=== PATIENT | female | born 1945 | race Two or more races ===

== ENCOUNTER 2022-11-27 07:01 | Day surgery (SDC) | payer OTHER ==
[~2022-11-27] VITALS: Ht 157.5 cm; Wt 89.4 kg
[2022-11-27] VITALS (7 sets, daily range): BP systolic 115–141; BP diastolic 65–82
[~2022-11-27 07:01] MED LIST: APIX5TAB PO; DRON400T PO; FLUO-125 PO; LEVO100T8 PO; LISI-706 PO; OMEP20TA PO; SIMV-8 PO
[2022-11-27] MEDS ORDERED: ANGIOMAX 250 MG VIAL IV ONE (08:54)
[2022-11-27] MEDS ORDERED: HEPARIN SODIUM (PORCINE) 5000 UNITS/ML 1ML VIAL ONE (08:54)
[2022-11-27] MEDS ORDERED: fentaNYL CITRATE 100 MCG/2 ML VL ONE (08:54)
[2022-11-27] MEDS ORDERED: LIDOCAINE 2%HCL (LOCAL ANESTH.) INJ 10ml MDV ONE (08:55)
[2022-11-27] MEDS ORDERED: IODIXANOL 320MG/ML 100ML BTL IV ONE (08:55)
[2022-11-27] MEDS ORDERED: VERAPAMIL 2.5MG/ML INJ 2ML VIAL IV ONE (08:55)
[2022-11-27] MEDS ORDERED: MIDAZOLAM HCL 2MG/2ML 2ml VIAL (1mg/ml) ONE (08:55)
[2022-11-27] MEDS ORDERED: SODIUM CHL 0.9% 0 ML ONE (08:55)
[2022-11-27] MEDS ORDERED: LIDOCAINE 2%HCL (LOCAL ANESTH.) INJ 20ML MDV ONE (09:38)
== END 2022-11-27 12:28 | disposition home or self-care (01) ==
LOC: CATH 07:01
PROVIDERS: ATTEND Internal Medicine Cardiovascular Disease
DX: I25.10 Atherosclerotic heart disease of native coronary artery without angina pectoris (principal); R94.39 Abnormal result of other cardiovascular function study; I77.89 Other specified disorders of arteries and arterioles; J44.9 Chronic obstructive pulmonary disease, unspecified; K44.9 Diaphragmatic hernia without obstruction or gangrene; I10 Essential (primary) hypertension; E03.9 Hypothyroidism, unspecified; E78.5 Hyperlipidemia, unspecified; I48.0 Paroxysmal atrial fibrillation; K21.9 Gastro-esophageal reflux disease without esophagitis; E66.01 Morbid (severe) obesity due to excess calories; Z68.36 Body mass index [BMI] 36.0-36.9, adult; Z87.891 Personal history of nicotine dependence; Z79.899 Other long term (current) drug therapy; Z79.890 Hormone replacement therapy
CPT/HCPCS: 76937; 93458; C1757; C1894; J1644; J2001; J2250; J3010; Q9967; 99152; 99153

== ENCOUNTER 2023-05-08 06:58 | Day surgery (SDC) | payer OTHER ==
[~2023-05-08] VITALS: Ht 157.5 cm; Wt 89.8 kg
[2023-05-08] VITALS (10 sets, daily range): BP systolic 101–148; BP diastolic 48–84; PULSE 57–110; RESP 13–18; TEMP 98.6; O2SAT 94–99
[~2023-05-08 06:58] MED LIST changes: +AMIO100T6 PO; -DRON400T PO; +HYDR200T36 PO; -LEVO100T8 PO; +LEVO112T4 PO; -SIMV-8 PO; +SIMV20TA20 PO
[2023-05-08] MEDS ORDERED: fentaNYL CITRATE 100 MCG/2 ML VL IV ONE (07:45)
[2023-05-08] MEDS ORDERED: MIDAZOLAM HCL 2MG/2ML 2ml VIAL (1mg/ml) IV ONE (07:45)
[2023-05-08] MEDS ORDERED: LIDOCAINE VISCOUS 2% 15ML UD PO ONE (07:45)
[2023-05-08] MEDS ORDERED: NALOXONE HCL 0.4 MG/ML VIAL ONE (08:36)
[2023-05-08] MEDS ORDERED: FLUMAZENIL 0.1 MG/ML INJ 10ML MDV IV ONE (08:36)
== END 2023-05-08 10:05 | disposition home or self-care (01) ==
LOC: CATH 06:58
PROVIDERS: ATTEND Internal Medicine Cardiovascular Disease
DX: I08.1 Rheumatic disorders of both mitral and tricuspid valves (principal); I48.91 Unspecified atrial fibrillation; I25.10 Atherosclerotic heart disease of native coronary artery without angina pectoris; I10 Essential (primary) hypertension; E78.5 Hyperlipidemia, unspecified; K21.9 Gastro-esophageal reflux disease without esophagitis; E03.9 Hypothyroidism, unspecified; M19.90 Unspecified osteoarthritis, unspecified site; Z87.891 Personal history of nicotine dependence; Z79.899 Other long term (current) drug therapy; Z79.890 Hormone replacement therapy
CPT/HCPCS: 92960; 93312; J2250; J3010; 99152

== ENCOUNTER 2024-03-11 06:55 | Inpatient (IN) | payer OTHER ==
[~2024-03-11] VITALS: Ht 162.6 cm; Wt 92.3 kg
[2024-03-11] VITALS (17 sets, daily range): BP systolic 88–149; BP diastolic 44–65; PULSE 60–65; RESP 11–20; TEMP 97.6–98; O2SAT 92–99
[~2024-03-11 06:55] MED LIST changes: +FOLI-119 PO; +METH2.5T PO; +SERT-375 PO
[2024-03-11] MEDS: VANCOMYCIN HCL 1000 MG VL ONE (08:23)
[2024-03-11] MEDS: fentaNYL CITRATE 100 MCG/2 ML VL ONE (08:24)
[2024-03-11] MEDS: MIDAZOLAM HCL 2MG/2ML 2ml VIAL (1mg/ml) ONE (08:25)
[2024-03-11] MEDS: VANCOMYCIN 1GM/200ML 200 ML IV ONE (08:26)
[2024-03-11] MEDS: LIDOCAINE 2%HCL (LOCAL ANESTH.) INJ 20ML MDV ONE (09:23)
[2024-03-11] MEDS: HYDROmorphone HCL 2 MG/ML VL/or syr ONE (09:47)
[2024-03-11] MEDS: IOHEXOL 350 MG/ML 100ML IJ ONE (09:49)
[2024-03-11] MEDS ORDERED: METHOTREXATE 2.5 MG TAB PO SCH (11:45)
[2024-03-11] MEDS ORDERED: MORPHINE SULFATE INJ 2 MG/ml SYRG IV PRN (11:45)
[2024-03-11] MEDS ORDERED: NITROGLYCERIN 0.4 MG SL TAB SL PRN (11:45)
[2024-03-11] MEDS: HYDROcodone-ACET 5/325MG TAB PO PRN (14:21)
[2024-03-11] MEDS: AMIODARONE HCL 200 MG TAB PO SCH (21:57)
[2024-03-11] MEDS: ATORVASTATIN 20 MG TAB PO SCH (21:57)
[2024-03-12] VITALS (8 sets, daily range): BP systolic 113–154; BP diastolic 58–79; PULSE 60–61; RESP 16–21; TEMP 97.8–99.5; O2SAT 92–95
[2024-03-12] MEDS: LEVOTHYROXINE SODIUM 112 MCG TAB PO SCH (06:40)
[2024-03-12] MEDS: LISINOPRIL 20 MG TAB PO SCH (09:19)
[2024-03-12] MEDS: FOLIC ACID 1 MG TAB PO SCH (09:20)
[2024-03-12] MEDS: hydrOXYchloroQUINE SULFATE 200 MG TAB PO SCH (09:20)
[2024-03-12] MEDS: SERTRALINE HCL 50 MG TAB PO SCH (09:20)
[2024-03-12] MEDS: FLUoxetine HCL 20 MG CAP PO SCH (09:20)
[2024-03-12] MEDS: hydroCHLOROthiazide 25 MG TAB PO SCH (09:21)
[2024-03-12] MEDS ORDERED: METHOTREXATE 2.5 MG TAB PO SCH (10:00)
== END 2024-03-12 18:50 | disposition home or self-care (01) | DRG 244 ==
LOC: CATH 06:55 → TELE 11:39 → TELE-WESTW 15:35
PROVIDERS: ADMIT Internal Medicine; ATTEND Internal Medicine
PROC: 0JH606Z Insertion of Pacemaker, Dual Chamber into Chest Subcutaneous Tissue and Fascia, Open Approach (ICD-10-PCS; principal; 2024-03-11)
PROC: 02H63JZ Insertion of Pacemaker Lead into Right Atrium, Percutaneous Approach (ICD-10-PCS; 2024-03-11)
PROC: 02HK3JZ Insertion of Pacemaker Lead into Right Ventricle, Percutaneous Approach (ICD-10-PCS; 2024-03-11)
PROC: B5171ZZ Fluoroscopy of Left Subclavian Vein using Low Osmolar Contrast (ICD-10-PCS; 2024-03-11)
DX: I49.5 Sick sinus syndrome (principal); I10 Essential (primary) hypertension
CPT/HCPCS: 33208; 71045; 99152; G0378; J2250

== ENCOUNTER 2024-07-15 12:02 | Inpatient (IN) | payer OTHER ==
[2024-07-15] VITALS (7 sets, daily range): BP systolic 104–124; BP diastolic 32–59; PULSE 64; RESP 18–20; O2SAT 92–97
[~2024-07-15] VITALS: Ht 157.5 cm; Wt 91.5 kg
[~2024-07-15 12:02] MED LIST changes: +ASPI-543 PO; +POM PO; -SERT-375 PO
[2024-07-15] MEDS: VANCOMYCIN HCL 1000 MG VL ONE ×2 (17:22→18:21)
[2024-07-15] MEDS: fentaNYL CITRATE 100 MCG/2 ML VL ONE ×2 (17:23→18:40)
[2024-07-15] MEDS: LIDOCAINE 2%HCL (LOCAL ANESTH.) INJ 20ML MDV ONE (17:23)
[2024-07-15] MEDS: MIDAZOLAM HCL 2MG/2ML 2ml VIAL (1mg/ml) ONE ×2 (17:23→17:55)
[2024-07-15] MEDS: VANCOMYCIN 1GM/250ML KIT 250 ML IV ONE (17:23)
--- NOTE | 2024-07-15 19:14 | DVHOP ---
DATE OF SURGERY: 07/15/2024 PROCEDURE PERFORMED: Lead revision for high thresholds leads. DESCRIPTION OF PROCEDURE: Prior local anesthesia with 2% lidocaine to the left pectoral area and full informed consent obtained over the preexisting pacer site, an incision was made and lidocaine was given as well as conscious sedation for local anesthetic. The patient was prepped and draped in the usual fashion. We dissected the generator and leads. We cut the preexisting sutures and repositioned the leads especially atrial lead into position that had adequate capture and sensitivity thresholds. This was done under fluoroscopic guidance. After several attempts, we found an adequate capture and sensitivity threshold, for which we then sutured the lead. The pocket was flushed with antibiotic solution and antibiotic powder was left in the pocket. The pocket was sutured with 3-0 Vicryl. The leads were sutured with 0 Ethibond. The skin was closed with 4-0 Monocryl. The patient tolerated the procedure well. There were no complications. We did not replace the leads or generator. The atrial lead captured at a 0.8 volts at 0.4 milliseconds with a P-wave of 1.5 and impedance of 430. Right ventricular capture at 0.7 volts at 0.4 milliseconds. R-waves of 7.7 with impedance of 485. The settings on the pacemaker was 165/130. AV delay of 205/150 with a PVARP of 250. The patient tolerated the procedure well. There were no complications. An EKG was ordered for evaluation. No complications. MD CAROL Campa/LEIGHTON TID: [id number] RECEIPT: [id number]
--- NOTE | 2024-07-15 20:59 | DVH ---
CHEST RADIOGRAPH Indication: post lead revision Technique: Single frontal view of the chest was obtained COMPARISON: XY CHEST PORTABLE on DOS: 03/12/24, XY CHEST PORTABLE on DOS: 03/11/24 FINDINGS: Lines and Tubes: Left chest wall pacemaker Lungs: Mild congestion Pleura: No effusion. No pneumothorax. Cardiomediastinal contours: Cardiomegaly Bones: Unremarkable IMPRESSION: Mild congestion
[2024-07-15] MEDS: traMADol HCL 50 MG TAB PO PRN (23:05)
[2024-07-16] VITALS (8 sets, daily range): BP systolic 102–140; BP diastolic 51–90; PULSE 59–71; RESP 14–20; TEMP 97.4–98.3; O2SAT 90–96
[2024-07-16] MEDS ORDERED: MORPHINE SULFATE INJ 2 MG/ml SYRG IV ONE (09:15)
--- NOTE | 2024-07-16 09:23 | DVHPN2 ---
Consult Progress Note Date Seen: Jul 16, 2024 Subjective Patient reports: No new complaints, Feels better Review of Systems: HEENT:Normal, CVS:Normal, RESPIRATORY:Normal, GI:Normal, :Normal, MSK:Normal, MSK:Abnormal, NEURO:Abnormal Objective vital signs Vital Sign Date Time Temp Pulse Resp B/P (MAP) Pulse Ox O2 Delivery O2 Flow Rate FiO2 07/16/24 05:00 97.4 71 20 137/62 (87) 93 97.4 07/15/24 21:00 Room Air* 0 21 Total Intake and Output 07/15/24 07/15/24 07/16/24 15:00 23:00 07:00 Intake Total 720 ml Output Total 300 ml Balance 420 ml medications Current Medications Medications Dose Ordered Sig/Dereck Route Start Time Stop Time Status Last Admin Dose Admin Tramadol HCl 50 mg Q4HP PRN PO 07/15/24 21:30 07/16/24 03:06 50 MG Examination: GENERAL:Normal, HEENT:Normal, NECK:Normal, LUNGS:Normal, CVS:Normal, ABDOMEN:Normal, MSK:Normal, SKIN:Normal (Pacer site looks good. No inflammation. ), NEURO:Normal, :Normal laboratory and microbiology Chest x-ray was evaluated. There is loss of slack from both the atrial and ventricular leads upon sitting up and the diaphragmatic excursion seems to have caused a stretching of the leads. We will repeat chest x-ray this morning and obtain threshold check. Problem List/Assessment/Plan Problem List/Assessment/Plan Status post pacemaker generator lead revision. We will obtain threshold check and chest x-ray before considering discharge. Plan discussed with: Patient Date of Service: Jul 16, 2024 Billing Provider: LEONID EDWARDS Sr., MD Cardiology Common Codes: [id number] HOSP CARE(High Card. Pacer Implants/Gen [id number] DUAL LEAD PACER ( lead revision) LEONID EDWARDS Sr., MD Jul 16, 2024 09:22
[2024-07-16] MEDS: HYDROcodone-ACET 5/325MG TAB PO PRN (11:46)
--- NOTE | 2024-07-16 12:30 | DVH ---
CHEST RADIOGRAPH Indication: pacer position Technique: Single frontal view of the chest was obtained COMPARISON: XY CHEST XRAY 1 VIEW on DOS: 07/15/24, XY CHEST PORTABLE on DOS: 03/12/24, XY CHEST PORTAB LE on DOS: 03/11/24 FINDINGS: Lines and Tubes: Left chest wall pacemaker Lungs: Mild congestion Pleura: No effusion. No pneumothorax. Cardiomediastinal contours: Unremarkable Bones: Unremarkable IMPRESSION: Left chest wall pacemaker in satisfactory position. Mild congestion.
[2024-07-17 01:00] VITALS: BP 154/63; PULSE 65; RESP 18; TEMP 98; O2SAT 99
[2024-07-17 05:00] VITALS: BP 134/56; PULSE 65; RESP 18; TEMP 98.2; O2SAT 90
[2024-07-17 08:00] VITALS: PULSE 65
[2024-07-17 08:46] VITALS: BP 141/63; PULSE 66; RESP 12; TEMP 97.9; O2SAT 91
[2024-07-17 13:00] VITALS: BP 127/63; PULSE 65; RESP 19; TEMP 98.5; O2SAT 92
--- NOTE | 2024-07-17 14:35 | DVHINCON2 ---
Date Seen: Jul 17, 2024 Referring Physician Cardiology. Reason for Consultation Medical management. History of Present Illness 79-year-old female with a known history of hypertension, dyslipidemia, hypothyroidism, anxiety disorder, rheumatological disorder, status post pacemaker placement who initially presented to the hospital for elective procedure. Patient was seen by Cardiology Dr. Lopez in his clinic and some of the leads had high threshold which needs to be revised. Patient is currently denies any chest pain palpitations or any other symptoms. Past Medical History Hypertension Dyslipidemia Hypothyroidism Anxiety disorder Rheumatological disorder Status post pacemaker placement Past Surgical History Status post pacemaker placement Status post pacemaker generator lead revision. Family History: Hypertension G8 MOTHER Allergies: Coded Allergies: NO KNOWN ALLERGIES (Unverified , 07/13/24) Home Meds Reported Medications Aspirin (Aspir-Low) 81 Mg Tab, 81 MG PO DAILY, MG 07/13/24 Patients Own Medication (PATIENTS OWN MEDICATION) ., 10 MG PO PRN for Aller- snow/Allergies PTS OWN MED-OBTAIN FROM PT AND SEND TO RX DRUG: FREQ: RX# EXP: DATE DISP: TECH: RPH: 07/13/24 Methotrexate (Methotrexate) 2.5 Mg Tab, 15 MG PO QWEEKLY for , MG 03/09/24 Folic Acid (Folic Acid) 1 Mg Tab, 1 MG PO DAILY, MG 03/09/24 Amiodarone HCl (Amiodarone Hydrochloride) 100 Mg Tab, 100 MG PO HS for cardiac, TAB 05/07/23 Hydroxychloroquine Sulfate (Hydroxychloroquine Sulfat) 200 Mg Tab, 200 MG PO DAILY for systemic involvement con. tiss 05/07/23 Levothyroxine Sodium (Levothyroxine Sodium) 112 Mcg Tab, 112 MCG PO QAM for hypothyroid 05/07/23 Apixaban Base (ELIQUIS) 5 Mg Tab, 5 MG PO BID, TAB 11/23/22 Lisinopril & Hydrochlorothiazi (Zestoretic 20-12.5 mg) 1 Tab Tab, 1 TAB PO DAILY, TAB 11/23/22 Omeprazole (Gnp Omeprazole) 20 Mg Tab, 20 MG PO DAILY, TAB 11/23/22 Simvastatin (Simvastatin) 20 Mg Tab, 20 MG PO DAILY 11/23/22 Fluoxetine Hcl (Fluoxetine Hcl) 20 Mg Cap, 20 MG PO DAILY 11/23/22 Review of Systems Twelve review of system are negative besides mentioned above. Vital Signs Vital Signs Date Time Temp Pulse Resp B/P (MAP) Pulse Ox O2 Delivery O2 Flow Rate FiO2 07/17/24 13:00 98.5 65 19 127/63 (84) 92 98.5 07/17/24 08:00 Room Air* 0 21 Physical Exam HEENT pupils are reactive Neck is supple CV is S1-S2 regular rate and rhythm Respiratory are clear GI positive bowel sound Extremity no edema [employer] no motor deficit Assessment 79-year-old female with the above-mentioned medical history initially presented to the hospital for elective procedure for pacemaker lead revision. 1. Hypertension 2. Dyslipidemia 3. Sick sinus syndrome status post pacemaker placement 4. Malfunctioning pacemaker lead, status post pacemaker generator lead revision 5. Rheumatology: Disorder 6. Anxiety disorder -patient is requesting some narcotics for home because of pacemaker surgery. -resume home medication, please follow up with the PCP upon discharge, follow up with the Cardiology as scheduled. Problems(with codes): (1) Pacemaker lead malfunction Plan discussed with: Patient Date of Service: Jul 17, 2024 Billing Provider: TEE MURRY MD Common Visit Codes: NOT BILLABLE TEE MURRY MD Jul 17, 2024 14:35
[2024-07-17] MEDS ORDERED: HYDR-4902 PO (14:38)
[2024-07-17 16:28] VITALS: BP 133/55; PULSE 65; RESP 16; TEMP 98.1; O2SAT 95
--- NOTE | 2024-07-21 10:30 | ECG ---
[facility] Test Date: 2024-07-15 Test Time: 20:24:11 Pat Name: ARIA FONG Department: Room: 0272T A Gender: F [employer] Guide: GIA : 1945 Requested By: LEONID EDWARDS Order Number: [id number] Reading MD: Yadira Ortega Measurements Intervals Hoffman Rate: 65 P: 0 MN: 204 QRS: -10 QRSD: 78 T: -24 QT: 538 QTc: 559 Interpretive Statements Electronic atrial pacemaker Inferior infarct , age undetermined Anterior infarct , age undetermined Prolonged QT Electronically Signed On 07-21-2024 13:32:39 PST by Yadira Ortega Please click the below link to view image of tracing.
== END 2024-07-17 18:30 | disposition home or self-care (01) | DRG 262 ==
LOC: CATH 12:02 → TELE 19:03 → TELE-WESTW 20:40
PROVIDERS: ADMIT Internal Medicine; ATTEND Internal Medicine
PROC: 0JWT0PZ Revision of Cardiac Rhythm Related Device in Trunk Subcutaneous Tissue and Fascia, Open Approach (ICD-10-PCS; principal; 2024-07-15)
PROC: 02WA0MZ Revision of Cardiac Lead in Heart, Open Approach (ICD-10-PCS; 2024-07-15)
DX: T82.110A Breakdown (mechanical) of cardiac electrode, initial encounter (principal); I10 Essential (primary) hypertension; F41.9 Anxiety disorder, unspecified; E78.5 Hyperlipidemia, unspecified; E03.9 Hypothyroidism, unspecified; I49.5 Sick sinus syndrome; Y71.2 Prosthetic and other implants, materials and accessory cardiovascular devices associated with adverse incidents; Z95.0 Presence of cardiac pacemaker; Z82.49 Family history of ischemic heart disease and other diseases of the circulatory system
CPT/HCPCS: 33218; 71045; 99152; G0378; J2250